=== PATIENT | male | born 1950 | race Caucasian/White ===

== ENCOUNTER 2017-08-21 10:47 | Inpatient (IN) | payer MEDICARE, OTHER ==
[~2017-08-21] VITALS: Ht 188 cm; Wt 104.3 kg
[2017-08-21 11:00] LABS: BASOPHILS # (AUTO) 0.1 /CMM (0.0-0.2); BASOPHILS % (AUTO) 0.7 % (0.0-2.0); EOSINOPHILS % (AUTO) 2.9 % (0.0-6.0); HEMATOCRIT 46 % (39-51); HEMOGLOBIN 15.4 g/dL (13.5-17.5); LYMPHOCYTES # (AUTO) 1.2 /CMM (0.8-4.8); LYMPHOCYTES % (AUTO) 11.4 % (20.0-44.0); MEAN CORPUSCULAR HGB CONC 34 g/dl (31.0-36.0); MEAN CORPUSCULAR VOLUME 91 fL (80-96); MONOCYTES # (AUTO) 1.1 /CMM (0.1-1.30); MONOCYTES % (AUTO) 10.4 % (2.0-12.0); NEUTROPHILS # (AUTO) 7.9 /CMM (1.8-8.9); NEUTROPHILS % (AUTO) 74.6 % (43.0-81.0); PLATELET COUNT (AUTO) 216 /CMM (150-450); RDW COEFFICIENT OF VARIATION 14.6 (11.5-15.0); RED BLOOD CELL COUNT(AUTO) 5.05 MIL/uL (4.5-6.0); WHITE BLOOD COUNT (AUTO) 10.6 K/uL (4.3-11.0)
--- NOTE | 2017-08-21 11:07 | NUR ---
PT TO ED ROOM 11. BIB ems frm hotel, feeling paranoid . AMBULATORY WITH STEADY GAIT. SIDE RAISL UP. HOB ELEVATED. CONENCTED TO MONITOR. SEEN AND EVALUATED BY ER PROVIDER.
[2017-08-21 11:11] LABS: CALCIUM, SERUM 9.1 mg/dL (8.5-10.1); CARBON DIOXIDE 26 mmol/L (21-32); CHLORIDE 104 mmol/L (98-107); CREATININE 1.6 mg/dL (0.6-1.3); GLUCOSE 143 mg/dL (74-106); SODIUM SERUM 140 mmol/L (136-145); UREA NITROGEN, BLOOD 34 mg/dL (7-18)
[2017-08-21 11:16] LABS: ALANINE AMINOTRANSFERASE 41 U/L (12-78); ALBUMIN 3.7 g/dL (3.4-5.0); ALCOHOL, BLOOD < 3 mg/dL (0-0); ALKALINE PHOSPHATASE 81 U/L (46-116); ASPARTATE AMINOTRANSFERASE 37 U/L (15-37); BILIRUBIN,DIRECT 0.2 mg/dL (0.0-0.2); BILIRUBIN,TOTAL 0.6 mg/dL (0.2-1.0); TOTAL PROTEIN, SERUM 7.2 g/dL (6.4-8.2)
--- NOTE | 2017-08-21 11:16 | NUR ---
URINE SAMPLE COLLECTED AND SEND TO LAB
[2017-08-21 11:24] LABS: ACETAMINOPHEN < 2 ug/ml (10-30)
--- NOTE | 2017-08-21 11:27 | NUR ---
[facility] [phone]
[2017-08-21 11:49] LABS: APPEARANCE,URINE Clear (CLEAR); BILIRUBIN,URINE SMALL (NEGATIVE); BLOOD, URINE Negative Ery/uL (NEGATIVE); COLOR,URINE Yellow (YELLOW); KETONES,URINE Negative (NEGATIVE); LEUKOCYTE ESTERASE ,URINE Negative (NEGATIVE); NITRITE, URINE Negative (NEGATIVE); PROTEIN,URINE 30 mg/dl (NEGATIVE); UGLUCOSE Negative (NEGATIVE); UROBILINOGEN,URINE 0.2 EU/dL (0.2)
[2017-08-21 12:02] LABS: BACTERIA,URINE Rare /HPF (None Seen); RBC,URINE 0-2 /HPF (0-2); SQUAMOUS EPITHELIAL CELL,UR Few /HPF (None Seen); WBC,URINE 0-2 /HPF (0-3)
--- NOTE | 2017-08-21 12:25 | NUR ---
LUNCH TRAY PROVIDED
--- NOTE | 2017-08-21 12:59 | NUR ---
JACOB ASSISTANT SCIENTIST AT BEDSIDE FOR PSYCHE EVAL
[2017-08-21] MEDS ORDERED: clonazePAM 1 MG TABLET PO ONE (13:30)
[2017-08-21] MEDS ORDERED: BUPR300T52 PO (13:37)
[2017-08-21] MEDS ORDERED: TRAZ-214 PO (13:37)
[2017-08-21] MEDS ORDERED: clonazePAM 1 MG TABLET ONE (13:45)
--- NOTE | 2017-08-21 13:59 | NUR ---
REPORT GIVEN TO MIKEY ALARCON [facility] ROOM 211-1
[2017-08-21 14:30] VITALS: BP 140/83
--- NOTE | 2017-08-21 14:30 | NUR ---
[id number]: PT IS 66 YEARS OLD FEMALE ADMITTED ON 5150 FOR GD. ACCORDING TO THE HOLD PT WAS BROUGHT IN BY AMBULANCE TO ER BECAUSE PT WAS DELUSIONAL AND PARANOID. PT BECAME SUSPICIOUS OF THE STAFF OF A LOCAL MOTEL AND STATES THAT HE CALLED THE POLICE AND ADMITS TO HAVING A MENTAL HEALTH ISSUES AND NOT SLEPT IN DAYS. WHEN INTERVIEWED AT BEDSIDE, PT PRESENTS RAMBLING SPEECH. HE WAS TANGENTIAL AND DELUSIONAL AND STATED, "I HAVE NOT BEEN TAKEN MY MEDICATIONS AND I THINK I HAVE WITNESS A FEDERAL CRIME. I STOOD IN TRAFFIC." PT HAS BIPOLAR. PROVIDE PT'S RIGHT BOOKLET. DISCUSS MEAL TIMES AND GROUPS ACTIVITIES. NOTIFIED DR. MCINTYRE AND DR. BROOKS. MRSA DONE. SKIN ASSESSMENT DONE. FAMILY NOTIFIED. ALL PAPERWORK AND COMPUTER COMPLETED. WILL ENDORSE TO INCOMING NURSE FOR CONTINUITY OF CARE TO DOUBLE CHECK ALL PAPERWORK AND COMPUTER DOCUMENTATION.
[2017-08-21] MEDS ORDERED: ACETAMINOPHEN 325 MG TABLET PO PRN (15:30)
[2017-08-21] MEDS ORDERED: MAGNESIUM HYDROXIDE 30 ML UDC PO PRN (15:30)
[2017-08-21] MEDS ORDERED: ZOLPIDEM TARTRATE 5 MG TABLET PO PRN (15:30)
[2017-08-21] MEDS ORDERED: MAG HYDROX/AL HYDROX/SIMETH 30 ML UDC PO PRN (15:30)
[2017-08-21] MEDS ORDERED: LORAZEPAM 0.5 MG TABLET PO PRN (15:30)
[2017-08-21 16:00] VITALS: BP 136/83
--- NOTE | 2017-08-21 19:30 | NUR ---
GPS RN NOTE, RECEIVED PATIENT AWAKE AND IN BED, PATIENT HAS NO COMPLAINTS OR S/S OF PAIN AT THIS TIME. PATIENT IS DISPLAYING NO S/S OF APPARENT DISTRESS AT THIS TIME. PATIENT BREATHING IS UNLABORED WITH EQUAL RISE AND FALL OF THE CHEST. PATIENT IS ALERT AND ORIENTED X 3 ON ROOM AIR WITH A SPO2 OF 96%. PATIENT IS COMPLIANT WITH MEDICATION, ANXIOUS AT TIMES, PARANOID, COOPERATIVE, HYPERVERBAL, AND NEEDS REORIENTATION. PATIENT DENIES SUICIDE IDEATIONS AND HOMICIDAL IDEATIONS AT THIS TIME. PATIENT ASSISTED WITH TURNING AND REPOSITIONING Q2HR AND PRN FOR COMFORT AND CIRCULATION. PATIENT HAS NO NEEDS AT THIS TIME. PATIENT EDUCATED ON THE USE OF THE CALL MICHEL. PATIENT SIDE RAILS ARE UP X 2, BED IS LOCKED AND LOW, AND I WILL CONTINUE TO MONITOR THIS PATIENT Q 15 MIN WITH THE HELP OF STAFF.
[2017-08-21 19:39] VITALS: BP 127/64
--- NOTE | 2017-08-21 22:37 | NUR ---
GPS RN NOTE, PATIENT HAS A COMPLAINT OF NOT BEING ABLE TO SLEEP AND IS REQUESTING A AMBIEN AT THIS TIME. PATIENT VITAL SIGNS ARE STABLE. GAVE AMBIEN 5 MG PO HS ORDERED. WILL REASSESS FOR INSOMNIA AND I WILL CONTINUE TO MONITOR THIS PATIENT.
--- NOTE | 2017-08-22 02:14 | NUR ---
GPS RN NOTE, PATIENT HAS A COMPLAINT OF LOWER BACK AT 8 OUT 10 ON THE PAIN SCALE AND IS REQUESTING NAPROXEN AT THIS TIME. PAGED [facility] AND INFORMED DR RAMON FARFAN OF MY FINDINGS. DR FARFAN ORDERED TO MOTRIN 400 MG 1 TAB PO Q8HR PRN AND NORCO 5-325 1 TAB PO Q8HR PRN. ALL ORDERS NOTED AND CARRIED OUT WILL CONTINUE TO MONITOR THIS PATIENT.
[2017-08-22] MEDS: IBUPROFEN 400 MG TABLET PO PRN (02:24)
--- NOTE | 2017-08-22 02:24 | NUR ---
GPS RN NOTE, PATIENT HAS A COMPLAINT OF LOWER BACK PAIN AT 8 OUT 10 ON THE PAIN SCALE AND IS REQUESTING MOTRIN. PATIENT VITAL SIGNS ARE STABLE. GAVE MOTRIN 400 MG PO Q8HR PRN ORDERED. WILL REASSESS FOR PAIN AND I WILL CONTINUE TO MONITOR THIS PATIENT.
--- NOTE | 2017-08-22 02:32 | NUR ---
GPS RN NOTE, PATIENT HAS A COMPLAINT OF FEELING ANXIOUS AND IS REQUESTING ATIVAN AT THIS TIME. PATIENT VITAL SIGNS ARE STABLE. GAVE ATIVAN 1MG PO Q8HR PRN ORDERED. WILL REASSESS FOR ANXIETY AND I WILL CONTINUE TO MONITOR THIS PATIENT.
[2017-08-22] MEDS ORDERED: ALLO100T PO (02:34)
[2017-08-22] MEDS ORDERED: LEVO50TA8 PO (02:34)
[2017-08-22] MEDS ORDERED: MIRT7.5T10 PO (06:35)
[2017-08-22] MEDS ORDERED: DIVA250T4 PO (06:38)
[2017-08-22] MEDS ORDERED: DIVA500T2 PO (06:38)
[2017-08-22] MEDS ORDERED: ALLO300T2 PO (06:40)
[2017-08-22] MEDS ORDERED: SIMV20TA6 PO (06:41)
[2017-08-22] MEDS ORDERED: ASPI-992 PO (06:42)
[2017-08-22] MEDS ORDERED: VITA1CAP PO (06:45)
[2017-08-22] MEDS ORDERED: MULT1TAB73 PO (06:45)
[2017-08-22 08:00] VITALS: BP 124/64
[2017-08-22 08:20] LABS: ALBUMIN 3.5 g/dL (3.4-5.0); BILIRUBIN,TOTAL 0.6 mg/dL (0.2-1.0); CALCIUM, SERUM 8.9 mg/dL (8.5-10.1); CREATININE 1.5 mg/dL (0.6-1.3); POTASSIUM 4.1 mmol/L (3.5-5.1); TOTAL PROTEIN, SERUM 7.2 g/dL (6.4-8.2)
[2017-08-22 08:26] LABS: THYROID STIMULATING HORMONE 7.302 uIU/mL (0.358-3.74)
[2017-08-22 08:27] LABS: CHOLESTEROL 158 mg/dL (<200); HDL CHOLESTEROL 61 mg/dL (40-60); LDL 106 mg/dL (0-99); TRIGLYCERIDES 119 mg/dL (30-150)
[2017-08-22] MEDS: DIVALPROEX SODIUM 250 MG TABLET.DR PO SCH ×2 (15:07→18:47)
[2017-08-22 15:50] VITALS: BP 157/92
[2017-08-22 19:35] VITALS: BP 174/95
[2017-08-22] MEDS: SIMVASTATIN 20 MG TABLET PO SCH (21:19)
[2017-08-22] MEDS: QUETIAPINE FUMARATE 25 MG TABLET PO SCH (21:19)
[2017-08-23] MEDS: clonazePAM 0.5 MG TABLET PO PRN ×2 (03:12→23:03)
--- NOTE | 2017-08-23 03:12 | NUR ---
GPS RN NOTE, PATIENT HAS A COMPLAINT OF FEELING ANXIOUS AND IS REQUESTING KLONOPIN AT THIS TIME. PATIENT VITAL SIGNS ARE STABLE. GAVE KLONOPIN 0.5MG PO Q8HR PRN ORDERED. WILL REASSESS FOR ANXIETY AND I WILL CONTINUE TO MONITOR THIS PATIENT.
[2017-08-23] MEDS: IBUPROFEN 400 MG TABLET PO PRN (03:14)
--- NOTE | 2017-08-23 03:14 | NUR ---
GPS RN NOTE, PATIENT HAS A COMPLAINT OF LOWER BACK PAIN AT 5 OUT 10 ON THE PAIN SCALE AND IS REQUESTING MOTRIN. PATIENT VITAL SIGNS ARE STABLE. GAVE MOTRIN 400 MG PO Q8HR PRN ORDERED. WILL REASSESS FOR PAIN AND I WILL CONTINUE TO MONITOR THIS PATIENT.
[2017-08-23] MEDS: HYDROCODONE/APAP 5/325MG 1 EACH TABLET PO PRN (07:06)
--- NOTE | 2017-08-23 07:07 | NUR ---
GPS RN NOTE, PATIENT HAS A COMPLAINT OF LOWER BACK PAIN AT A 8 OUT 10 ON THE PAIN SCALE AND IS REQUESTING NORCO AT THIS TIME. PATIENT VITAL SIGNS ARE STABLE. GAVE NORCO 5-325 1 TAB PO Q6HR PRN ORDERED. WILL REASSESS FOR PAIN AND I WILL CONTINUE TO MONITOR THIS PATIENT.
[2017-08-23 08:00] VITALS: BP 147/81
[2017-08-23] MEDS: ALLOPURINOL 100 MG TABLET PO SCH (09:05)
[2017-08-23] MEDS: MULTIVIT, IRON, MIN NO. 8, FA 1 TAB PO SCH (09:05)
[2017-08-23] MEDS: DIVALPROEX SODIUM 250 MG TABLET.DR PO SCH ×3 (09:05→16:51)
[2017-08-23] MEDS: VIT B CMPLX 3/FA/VIT C/BIOTIN 1 TAB TABLET PO SCH (09:05)
[2017-08-23] MEDS: LEVOTHYROXINE SODIUM 50 MCG TABLET PO SCH (09:05)
[2017-08-23] MEDS: ASPIRIN 325 MG TABLET PO SCH (09:05)
[2017-08-23] MEDS ORDERED: ACETAMINOPHEN 325 MG TABLET PO PRN (14:00)
[2017-08-23 16:00] VITALS: BP 163/83
[2017-08-23 20:07] VITALS: BP 148/80
[2017-08-23] MEDS: SIMVASTATIN 20 MG TABLET PO SCH (21:12)
[2017-08-23] MEDS: QUETIAPINE FUMARATE 25 MG TABLET PO SCH (21:12)
[2017-08-24 09:15] VITALS: BP 145/96
[2017-08-24] MEDS: MULTIVIT, IRON, MIN NO. 8, FA 1 TAB PO SCH (09:36)
[2017-08-24] MEDS: LEVOTHYROXINE SODIUM 50 MCG TABLET PO SCH (09:36)
[2017-08-24] MEDS: ASPIRIN 325 MG TABLET PO SCH (09:36)
[2017-08-24] MEDS: DIVALPROEX SODIUM 250 MG TABLET.DR PO SCH ×3 (09:36→17:13)
[2017-08-24] MEDS: ALLOPURINOL 100 MG TABLET PO SCH (09:36)
[2017-08-24] MEDS: VIT B CMPLX 3/FA/VIT C/BIOTIN 1 TAB TABLET PO SCH (09:37)
--- NOTE | 2017-08-24 16:19 | NUR ---
Initial Discharge Plan: Pt resides at [facility] [address] [address]; . Per pt he is currently on vacation visiting with his son, Wilian in [place] . Upon discharge pt would like to discharge to the [facility]. SW contacted Wilian, pts son for collateral information. 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 SW will follow up. Sw will ensure pt is safely and adequately discharged.
[2017-08-24 20:09] VITALS: BP 142/92
[2017-08-24] MEDS: QUETIAPINE FUMARATE 25 MG TABLET PO SCH (21:56)
[2017-08-24] MEDS: SIMVASTATIN 20 MG TABLET PO SCH (21:56)
[2017-08-24] MEDS: clonazePAM 0.5 MG TABLET PO PRN (22:25)
[2017-08-24 23:00] VITALS: BP 132/80
[2017-08-25] MEDS: HYDROCODONE/APAP 5/325MG 1 EACH TABLET PO PRN ×2 (04:48→23:18)
[2017-08-25 09:18] VITALS: BP 130/80
[2017-08-25] MEDS: ASPIRIN 325 MG TABLET PO SCH (09:19)
[2017-08-25] MEDS: LEVOTHYROXINE SODIUM 50 MCG TABLET PO SCH (09:19)
[2017-08-25] MEDS: MULTIVIT, IRON, MIN NO. 8, FA 1 TAB PO SCH (09:19)
[2017-08-25] MEDS: ALLOPURINOL 100 MG TABLET PO SCH (09:19)
[2017-08-25] MEDS: DIVALPROEX SODIUM 250 MG TABLET.DR PO SCH ×3 (09:19→16:53)
[2017-08-25] MEDS: VIT B CMPLX 3/FA/VIT C/BIOTIN 1 TAB TABLET PO SCH (09:19)
[2017-08-25 16:00] VITALS: BP 140/85
[2017-08-25 16:24] LABS: BASOPHILS % (AUTO) 0.3 % (0.0-2.0); EOSINOPHILS % (AUTO) 5.9 % (0.0-6.0); HEMATOCRIT 43 % (39-51); HEMOGLOBIN 14.5 g/dL (13.5-17.5); LYMPHOCYTES # (AUTO) 1.7 /CMM (0.8-4.8); LYMPHOCYTES % (AUTO) 17.9 % (20.0-44.0); MEAN CORPUSCULAR HGB CONC 34 g/dl (31.0-36.0); MEAN CORPUSCULAR VOLUME 91 fL (80-96); MONOCYTES # (AUTO) 0.9 /CMM (0.1-1.30); MONOCYTES % (AUTO) 8.8 % (2.0-12.0); NEUTROPHILS # (AUTO) 6.5 /CMM (1.8-8.9); NEUTROPHILS % (AUTO) 67.1 % (43.0-81.0); PLATELET COUNT (AUTO) 221 /CMM (150-450); RDW COEFFICIENT OF VARIATION 15.3 (11.5-15.0); RED BLOOD CELL COUNT(AUTO) 4.73 MIL/uL (4.5-6.0); WHITE BLOOD COUNT (AUTO) 9.7 K/uL (4.3-11.0)
[2017-08-25 16:41] LABS: CALCIUM, SERUM 9.1 mg/dL (8.5-10.1); CREATININE 1.4 mg/dL (0.6-1.3); PHOSPHORUS 3.7 mg/dL (2.5-4.9); POTASSIUM 4.2 mmol/L (3.5-5.1)
[2017-08-25 20:00] VITALS: BP 143/73
[2017-08-25] MEDS: SIMVASTATIN 20 MG TABLET PO SCH (21:35)
[2017-08-25] MEDS: QUETIAPINE FUMARATE 25 MG TABLET PO SCH (21:35)
[2017-08-26 08:00] VITALS: BP 144/62
[2017-08-26] MEDS: DIVALPROEX SODIUM 250 MG TABLET.DR PO SCH ×2 (08:20→20:17)
[2017-08-26] MEDS: ASPIRIN 325 MG TABLET PO SCH (08:20)
[2017-08-26] MEDS: VIT B CMPLX 3/FA/VIT C/BIOTIN 1 TAB TABLET PO SCH (08:20)
[2017-08-26] MEDS: ALLOPURINOL 100 MG TABLET PO SCH (08:21)
[2017-08-26] MEDS: MULTIVIT, IRON, MIN NO. 8, FA 1 TAB PO SCH (08:21)
[2017-08-26] MEDS: LEVOTHYROXINE SODIUM 50 MCG TABLET PO SCH (08:21)
[2017-08-26] MEDS: HYDROCODONE/APAP 5/325MG 1 EACH TABLET PO PRN ×2 (09:14→21:30)
[2017-08-26 16:04] VITALS: BP 151/87
[2017-08-26 20:00] VITALS: BP 119/56
[2017-08-26] MEDS: QUETIAPINE FUMARATE 25 MG TABLET PO SCH (20:56)
[2017-08-26] MEDS: SIMVASTATIN 20 MG TABLET PO SCH (20:56)
--- NOTE | 2017-08-26 21:31 | NUR ---
C/O BACK BACK PAIN, 7/10 ON PAIN SCALE, NORCO 5/325 MG TAB 1 PO GIVEN.
[2017-08-27 08:00] VITALS: BP 138/89
[2017-08-27] MEDS: ASPIRIN 325 MG TABLET PO SCH (08:08)
[2017-08-27] MEDS: MULTIVIT, IRON, MIN NO. 8, FA 1 TAB PO SCH (08:09)
[2017-08-27] MEDS: DIVALPROEX SODIUM 250 MG TABLET.DR PO SCH ×2 (08:09→20:08)
[2017-08-27] MEDS: VIT B CMPLX 3/FA/VIT C/BIOTIN 1 TAB TABLET PO SCH (08:09)
[2017-08-27] MEDS: LEVOTHYROXINE SODIUM 50 MCG TABLET PO SCH (08:09)
[2017-08-27] MEDS: ALLOPURINOL 100 MG TABLET PO SCH (08:09)
[2017-08-27 08:34] VITALS: BP 138/89
[2017-08-27] MEDS: HYDROCODONE/APAP 5/325MG 1 EACH TABLET PO PRN ×2 (08:40→17:28)
[2017-08-27 16:00] VITALS: BP 141/80
[2017-08-27 20:00] VITALS: BP_SYST 139; BP_SYST 157; BP_DIAS 64
[2017-08-27] MEDS: QUETIAPINE FUMARATE 25 MG TABLET PO SCH (21:04)
[2017-08-27] MEDS: SIMVASTATIN 20 MG TABLET PO SCH (21:05)
[2017-08-28] MEDS: HYDROCODONE/APAP 5/325MG 1 EACH TABLET PO PRN (06:06)
--- NOTE | 2017-08-28 06:07 | NUR ---
NORCO 5/325 MG TAB 1 PO GIVEN FOR BACK PAIN, 7/10 ON PAIN SCALE
[2017-08-28 08:00] VITALS: BP 156/91
[2017-08-28] MEDS: MULTIVIT, IRON, MIN NO. 8, FA 1 TAB PO SCH (08:11)
[2017-08-28] MEDS: LEVOTHYROXINE SODIUM 50 MCG TABLET PO SCH (08:11)
[2017-08-28] MEDS: ASPIRIN 325 MG TABLET PO SCH (08:11)
[2017-08-28] MEDS: ALLOPURINOL 100 MG TABLET PO SCH (08:11)
[2017-08-28] MEDS: DIVALPROEX SODIUM 250 MG TABLET.DR PO SCH ×2 (08:11→21:32)
[2017-08-28] MEDS: VIT B CMPLX 3/FA/VIT C/BIOTIN 1 TAB TABLET PO SCH (08:42)
[2017-08-28 16:00] VITALS: BP 141/92
[2017-08-28 20:53] VITALS: BP 153/90
[2017-08-28] MEDS: SIMVASTATIN 20 MG TABLET PO SCH (21:32)
[2017-08-28] MEDS: QUETIAPINE FUMARATE 25 MG TABLET PO SCH (21:32)
[2017-08-28 23:17] VITALS: BP 134/82
[2017-08-29 08:18] VITALS: BP 157/92
[2017-08-29] MEDS: ASPIRIN 325 MG TABLET PO SCH (08:21)
[2017-08-29] MEDS: ALLOPURINOL 100 MG TABLET PO SCH (08:21)
[2017-08-29] MEDS: LEVOTHYROXINE SODIUM 50 MCG TABLET PO SCH (08:21)
[2017-08-29] MEDS: VIT B CMPLX 3/FA/VIT C/BIOTIN 1 TAB TABLET PO SCH (08:21)
[2017-08-29] MEDS: DIVALPROEX SODIUM 250 MG TABLET.DR PO SCH (08:21)
[2017-08-29] MEDS: MULTIVIT, IRON, MIN NO. 8, FA 1 TAB PO SCH (08:21)
[2017-08-29] MEDS: HYDROCODONE/APAP 5/325MG 1 EACH TABLET PO PRN (08:23)
[2017-08-29 09:23] LABS: BASOPHILS % (AUTO) 0.4 % (0.0-2.0); EOSINOPHILS % (AUTO) 5.6 % (0.0-6.0); HEMATOCRIT 43 % (39-51); HEMOGLOBIN 14.4 g/dL (13.5-17.5); LYMPHOCYTES # (AUTO) 1.4 /CMM (0.8-4.8); LYMPHOCYTES % (AUTO) 15.6 % (20.0-44.0); MEAN CORPUSCULAR HGB CONC 34 g/dl (31.0-36.0); MEAN CORPUSCULAR VOLUME 92 fL (80-96); MONOCYTES # (AUTO) 0.9 /CMM (0.1-1.30); MONOCYTES % (AUTO) 10.5 % (2.0-12.0); NEUTROPHILS # (AUTO) 6.1 /CMM (1.8-8.9); NEUTROPHILS % (AUTO) 67.9 % (43.0-81.0); PLATELET COUNT (AUTO) 191 /CMM (150-450); RDW COEFFICIENT OF VARIATION 14.4 (11.5-15.0); RED BLOOD CELL COUNT(AUTO) 4.64 MIL/uL (4.5-6.0); WHITE BLOOD COUNT (AUTO) 8.9 K/uL (4.3-11.0)
[2017-08-29 09:54] LABS: CREATININE 1.6 mg/dL (0.6-1.3); POTASSIUM 3.9 mmol/L (3.5-5.1)
[2017-08-29 13:12] LABS: CALCITRIOL VIT D,1, 25 DIHYDRO 37.5 pg/mL (19.9-79.3)
--- NOTE | 2017-08-29 14:00 | NUR ---
BUTCHER'S ASSISTANT NOTES PT. WAS DISCHARGED IN MEDICALLY STABLE CONDITION. PT.'S SON ARRIVED TO LEAVE WITH PT. DISCHARGE PACKET INSTRUCTIONS WERE EXPLAINED, AND PT. VERBALIZED UNDERSTANDING. DISCHARGE PACKET PAPERS WERE SIGNED. BELONGINGS LIST WAS CHECKED, AND SIGNED. PRESCRIPTION WAS GIVEN TO PATIENT WITH EDUCATION. ID BAND WAS REMOVED. PT. LEFT WITH DISCHARGE PACKET.
== END 2017-08-29 15:00 | disposition home or self-care (01) | DRG 885 ==
LOC: ER 10:49 → GPS 14:38
PROVIDERS: ADMIT Psychiatry & Neurology Psychiatry; ATTEND Psychiatry & Neurology Psychiatry
DX: F31.2 Bipolar disorder, current episode manic severe with psychotic features (principal); N18.9 Chronic kidney disease, unspecified; N17.9 Acute kidney failure, unspecified; F29 Unspecified psychosis not due to a substance or known physiological condition; E03.9 Hypothyroidism, unspecified; M10.9 Gout, unspecified; Z73.6 Limitation of activities due to disability; E78.5 Hyperlipidemia, unspecified; I12.9 Hypertensive chronic kidney disease with stage 1 through stage 4 chronic kidney disease, or unspecified chronic kidney disease; F41.9 Anxiety disorder, unspecified; Z91.19 Patient's noncompliance with other medical treatment and regimen; Z79.899 Other long term (current) drug therapy
CPT/HCPCS: 36415; 76770-TC; 80048-TC; 80053-TC; 80061-TC; 80076-TC; 80164-TC; 80305; 81000-TC; 82306; 82652; 83735-TC; 83970; 84100-TC; 84439-TC; 84443-TC; 85025-TC; 87081-TC; A4606; G0480; Z7610